=== PATIENT | female | born 1975 | race African-American/Black ===

== ENCOUNTER → 2016-06-12 | Outpatient (CLI) | payer OTHER ==
--- NOTE | 2016-06-12 10:37 | MM ---
Reason for exam: screening (asymptomatic). Baseline mammogram. Physical Findings: Nurse did not find any significant physical abnormalities on exam. MG Screening Mammo w CAD Bilateral CC and MLO view(s) were taken. The breast tissue is heterogeneously dense. This may lower the sensitivity of mammography. There is no discrete abnormality. These results were verbally communicated with the patient and result sheet given to the patient on 06/12/16. ASSESSMENT: Negative, BI-RAD 1 RECOMMENDATION: Routine screening mammogram of both breasts in 1 year.
== END | disposition home or self-care (01) ==
LOC: RADMAMWWP 09:44
PROVIDERS: ATTEND Internal Medicine
DX: Z12.31 Encounter for screening mammogram for malignant neoplasm of breast (principal)

== ENCOUNTER → 2019-07-29 | Outpatient (CLI) | payer OTHER ==
--- NOTE | 2019-07-29 14:49 | CT ---
EXAMINATION TYPE: CT brain wo con DATE OF EXAM: 07/29/2019 COMPARISON: None HISTORY: Headache with visual disturbance CT DLP: 1113.[address] of the brain was performed. The ventricles, basal cisterns and sulci overlying the cerebral convexities demonstrate a normal appe arance. There is symmetric decreased attenuation involving the bilateral cerebellar hemispheres of u ncertain etiology. I cannot exclude various infective and inflammatory processes. Consider further ev aluation with MRI. There is no evidence for intracranial hemorrhage or sulcal effacement. No mass effects are seen. Osseous calvarium is intact. If symptoms persist consider MRI as clinically warranted. IMPRESSION: 1. There is symmetric decreased attenuation involving the bilateral cerebellar hemispheres of uncert ain etiology. I cannot exclude various infective and inflammatory processes. Consider further evaluat ion with MRI.
== END | disposition home or self-care (01) ==
LOC: RADCTMAIN 14:10
PROVIDERS: ATTEND Internal Medicine
DX: R51 Headache (principal)
CPT/HCPCS: 70450

== ENCOUNTER → 2019-09-17 | Outpatient (CLI) | payer OTHER ==
[2019-09-17 13:33] LABS: Basophils # (A) 0.1 k/uL (0-0.2); Basophils % (A) 1 %; Eosinophils # (A) 0.1 k/uL (0-0.7); Eosinophils % (A) 3 %; HCT 35.5 % (34.0-46.0); HGB 10.9 gm/dL (11.4-16.0); Hypochromasia Slight; Lymphocytes # (A) 1.7 k/uL (1.0-4.8); Lymphocytes % (A) 36 %; MCH 26.3 pg (25.0-35.0); MCHC 30.7 g/dL (31.0-37.0); MCV 85.6 fL (80.0-100.0); Mean Platelet Volume 12.3; Monocytes # (A) 0.4 k/uL (0-1.0); Monocytes % (A) 8 %; Neutrophils # (A) 2.3 k/uL (1.3-7.7); Neutrophils % (A) 50 %; Platelet Count 184 k/uL (150-450); RBC 4.15 m/uL (3.80-5.40); RDW 15.6 % (11.5-15.5); WBC 4.7 k/uL (3.8-10.6)
[2019-09-17 14:11] LABS: Large Platelets Present
[2019-09-17 19:25] LABS: African American GFR (CKD) 121.3 (60.0-200.0); Albumin 4.2 g/dL (3.80-4.90); Albumin/Globulin Ratio 1.75 (1.60-3.17); Anion Gap 6.2 mmol/L (4.00-12.00); Calcium 9.6 mg/dL (8.7-10.3); Carbon Dioxide 27.8 mmol/L (21.6-31.8); Globulin 2.4 g/dL (1.6-3.3); Non-African American GFR(CKD) 104.6 (60.0-200.0); Potassium 4.1 mmol/L (3.5-5.5); Total Bilirubin 0.8 mg/dL (0.2-1.2); Total Protein 6.6 g/dL (6.2-8.2)
== END | disposition home or self-care (01) ==
LOC: LABWHC1 11:26
PROVIDERS: ATTEND Nurse Practitioner Acute Care
DX: R51 Headache (principal); R42 Dizziness and giddiness
CPT/HCPCS: 36415; 80053; 85025

== ENCOUNTER → 2022-01-01 | Outpatient (CLI) | payer OTHER ==
[2022-01-01 12:48] VITALS: BP 117/86; PULSE 76; TEMP 98; BMI 27.8
--- NOTE | 2022-01-01 12:51 | P.BASOAP ---
Subjective Progress Note Date: 01/01/22 Principal diagnosis: Morbid obesity 46-year-old female known to our service. Patient had lap band placed approximately 16 years ago. She still has 2 mL in her band as far as she can recall. Over the last 2 months she has had left lower quadrant abdominal pain. She is seeing multiple physicians to try to see if she can come up with an explanation for her pain. She had a CT abdomen and pelvis performed at [facility] and other than a left renal staghorn calculus no abnormalities were noted. Patient still has adequate restriction. No significant reflux or vomiting. No fevers. Objective - Vital Signs Vital signs: Vital Signs Temp 98 F 01/01/22 12:43 Pulse 76 01/01/22 12:43 Resp BP 117/86 01/01/22 12:43 Pulse Ox FiO2 Intake & Output 12/31/21 01/01/22 01/01/22 18:59 06:59 18:59 Weight 84.368 kg - Exam Abdomen: Soft, nondistended, mild left lower quadrant tenderness Assessment/Plan (1) Left lower quadrant abdominal pain Narrative/Plan: 46-year-old female with left lower quadrant abdominal pain. Options reviewed. Certainly the location of the pain would be inconsistent with band complications. We discussed options of observation, loosening LAP-BAND, or EGD. She will continue seeing her specialists and if no explanation for pain is noted other than the kidney stone she will consider scheduling EGD to evaluate for erosion. Plan: Date: 01/01/22 Initial Weight: Initial BMI: Current Weight: 84.368 kg Current BMI: 27.8 Type of Surgery: Total Volume in Band: Previous Volume: Volume Removed: Volume Added: Band Size:
== END | disposition home or self-care (01) ==
LOC: BARWHC3 11:51
PROVIDERS: ATTEND Surgery
DX: E66.01 Morbid (severe) obesity due to excess calories (principal)
CPT/HCPCS: 99211

== ENCOUNTER → 2022-07-16 | Outpatient (CLI) | payer OTHER ==
[2022-07-16 15:21] VITALS: BP 122/57; PULSE 103; RESP 16; TEMP 98.3; BMI 30.4
--- NOTE | 2022-07-16 15:50 | P.BASOAP ---
Subjective Progress Note Date: 07/16/22 Principal diagnosis: GERD, obesity 47-year-old female returns for recheck. She was last seen last December. Unfortunately she was diagnosed with colon cancer after colonoscopy was being performed for lower abdominal pain. Patient underwent robotic resection. One out of 40 lymph nodes positive. She has completed 3 months of adjuvant chemotherapy. Apparently they were discussing possibly another 3 months of chemotherapy. She is going to [facility] this for a second opinion. Patient says she has a loss of restriction from her band. She has gained some weight. Weight 203 from 186. She would like fluid added to the band. Objective - Vital Signs Vital signs: Vital Signs Temp 98.3 F 07/16/22 15:19 Pulse 103 H 07/16/22 15:19 Resp 16 07/16/22 15:19 BP 122/57 07/16/22 15:19 Pulse Ox FiO2 Intake & Output 07/15/22 07/16/22 07/16/22 18:59 06:59 18:59 Weight 92.079 kg - Exam Abdomen: Soft, nontender, nondistended, prior scars noted Assessment/Plan (1) Morbid obesity Narrative/Plan: 47-year-old female with morbid obesity and loss of restriction. We decided to access the band and see what the fluid status was. Under sterile condition attempts at losing band were made but on successful in entering into the hub the port. Options discussed. We'll proceed with fluoroscopy fill. Plan: Date: 07/16/22 Initial Weight: 111.13 kg Initial BMI: 36.7 Current Weight: 92.079 kg Current BMI: 30.4 Type of Surgery: Adjustable Gastric Banding Total Volume in Band: Previous Volume: Volume Removed: Volume Added: Band Size:
== END ==
LOC: BARWHC3 15:07
PROVIDERS: ATTEND Surgery
DX: E66.01 Morbid (severe) obesity due to excess calories (principal); K21.9 Gastro-esophageal reflux disease without esophagitis; Z68.30 Body mass index [BMI] 30.0-30.9, adult
CPT/HCPCS: 99212

== ENCOUNTER → 2022-08-13 | Outpatient (CLI) | payer OTHER ==
--- NOTE | 2022-08-13 13:47 | FL ---
EXAMINATION TYPE: FL esophagus cervic/pharynx DATE OF EXAM: 08/13/2022 HISTORY: 47-year-old female lap band evaluation, placed 15 years ago. 2 weeks of vomiting. COMPARISON: NONE TECHNIQUE: A single contrast esophagram is performed with thin barium. A total of 144 seconds of fl uoroscopic time was utilized during procedure and 33 images obtained. Total dose area product (DAP) in uGy*m?, mGy*cm? (or similar): 525.7. FINDINGS: Patient swallowed oral contrast without difficulty or delay. The lap band is approximately 30 degrees above the horizontal. No priors available to assess for interval change in positioning. There is a thin stream of contrast that flows across the lap band. The distal esophagus is mildly dil ated with fluid as a result, refer to image 27 of 33. No sizable hiatal hernia seen. A couple episodes of gastroesophageal reflux secondary to the narrowin g at the lap band. IMPRESSION: 1. Lap band is angled approximately 30 degrees above the horizontal. This argues against dandre lap-ba nd prolapse. No priors available to assess for interval change in position. 2. However, the lap band is tight with only a thin stream making its way across the lap band. The dis alphonse esophagus is mildly dilated with fluid as a result. Mild relative obstruction is suggested.
--- NOTE | 2022-08-13 14:26 | P.PN ---
Progress Note - Text Progress Note Date: 08/13/22 Patient presents today for a lap band adjustment under fluoroscopy. When she was seen in the office a few weeks ago patient was requesting a fill. She was started on oral chemotherapy for colon cancer. Over the last 2 weeks patient has had increased dysphagia and heartburn. Rather than add fluid to the band we ordered a esophagram when she arrived. The esophagram shows the band is too tight. Under fluoroscopic guidance I was unable to access the port and the band was emptied. There was actually 4 mL in the band. All 4 mL was removed. The port was partially upside down. I was able to come at the port from the right side laterally and took the port gently back flat and access it that way. The patient was discharged home. She will follow-up in the office. We'll discuss options of lap band port adjustment or replacement when we see her next visit. Patient will contact me with any residual dysphasia.
--- NOTE | 2022-08-13 16:42 | FL ---
Intraoperative/procedural fluoroscopic services were provided. Total fluoroscopy time is 52 seconds w ith a total of 4 submitted images to PACS. Please see the operative/procedural note for further detai ls. DAP: 397 mGym2
== END | disposition home or self-care (01) ==
LOC: RADUSWWP 12:18
PROVIDERS: ATTEND Surgery
DX: K22.89 Other specified disease of esophagus (principal); Z46.51 Encounter for fitting and adjustment of gastric lap band
CPT/HCPCS: 74210

== ENCOUNTER → 2022-10-29 | Outpatient (CLI) | payer OTHER ==
[2022-10-29 14:25] VITALS: BP 117/79; PULSE 102; TEMP 97.7; BMI 32.0
--- NOTE | 2022-10-29 14:54 | P.BASOAP ---
Subjective Progress Note Date: 10/29/22 Principal diagnosis: Morbid obesity Patient returns for recheck. Last seen her band was emptied a few months ago. She had done well since then. Lap band empty and required fluoroscopic adjustment. No dysphagia or heartburn. Patient has gained some weight. She would like more fluid added back. Objective - Vital Signs Vital signs: Vital Signs Temp 97.7 F 10/29/22 14:22 Pulse 102 H 10/29/22 14:22 Resp BP 117/79 10/29/22 14:22 Pulse Ox FiO2 Intake & Output 10/28/22 10/29/22 10/29/22 18:59 06:59 18:59 Weight 97.023 kg - Exam AAbdomen: Soft, nontender, nondistended Assessment/Plan (1) Morbid obesity Narrative/Plan: 47-year-old female doing well at this time. She would like fluid added to her band. Will attempt band access without fluoroscopy The patient's lap band port was palpated. The site was aseptically prepped. The Valdez needle was advanced into the port slightly laterally from the right and the port was able to be accessed. A total of 2 ml of fluid was added for a total of 2 mL. Pressure was held and a sterile dressing was applied. Plan: Date: 10/29/22 Initial Weight: 111.13 kg Initial BMI: 36.7 Current Weight: 97.023 kg Current BMI: 32.0 Type of Surgery: Total Volume in Band: Previous Volume: Volume Removed: Volume Added: Band Size:
== END ==
LOC: BARWHC3 14:02
PROVIDERS: ATTEND Surgery
DX: E66.01 Morbid (severe) obesity due to excess calories (principal); Z46.51 Encounter for fitting and adjustment of gastric lap band; Z68.32 Body mass index [BMI] 32.0-32.9, adult
CPT/HCPCS: 99212

== ENCOUNTER → 2023-04-01 | Outpatient (CLI) | payer OTHER ==
--- NOTE | 2023-04-01 14:09 | P.BASOAP ---
Subjective Progress Note Date: 04/01/23 Principal diagnosis: Morbid obesity 48-year-old female currently residing in [place]. She was last seen in the fall. We had to do a fluoroscopic fill to add 2 cc. Patient has actually gained weight approximately 8 pounds since that time. Patient is now interested in band removal. Says she is having some GERD symptoms. Some pain at times. She is concerned about erosion. She has no immediate plans for future bariatric surgery. She did have a previous robotic colectomy. Prior to that had a abdominoplasty. Objective - Exam Deferred Assessment/Plan (1) Morbid obesity Narrative/Plan: 48-year-old female with morbid obesity. Patient with band intolerance issues. Will proceed with laparoscopic Lap-Band removal, possible open. The risks of bleeding, infection, stenosis, stricture, leak, abscess, fistula formation, peritonitis, reflux, vomiting, conversion to an open procedure, aborting procedure, [place], PE, DVT, and were discussed. The patient understands and wishes to proceed. Plan: Date: Initial Weight: 111.13 kg Initial BMI: Current Weight: Current BMI: Type of Surgery: Total Volume in Band: Previous Volume: Volume Removed: Volume Added: Band Size:
== END ==
LOC: BARWHC3 14:42
PROVIDERS: ATTEND Surgery
DX: K21.9 Gastro-esophageal reflux disease without esophagitis (principal); E66.01 Morbid (severe) obesity due to excess calories; Z46.51 Encounter for fitting and adjustment of gastric lap band; Z98.84 Bariatric surgery status; Z98.890 Other specified postprocedural states
CPT/HCPCS: 99211

== ENCOUNTER → 2023-05-30 | Outpatient (CLI) | payer BC ==
[2023-05-30 17:09] LABS: Basophils # (A) 0.06 X 10*3/uL (0.00-0.10); Basophils % (A) 0.7 %; Eosinophils # (A) 0.27 X 10*3/uL (0.04-0.35); Eosinophils % (A) 3.2 %; HCT 37.2 % (37.2-46.3); HGB 10.8 g/dL (12.0-15.0); Lymphocytes # (A) 2.43 X 10*3/uL (0.90-5.00); Lymphocytes % (A) 28.8 %; MCH 22.5 pg (27.0-32.0); MCV 77.7 FL (80.0-97.0); Monocytes # (A) 0.98 X 10*3/uL (0.20-1.00); Monocytes % (A) 11.6 %; NRBC Per 100 WBC 0 X 10*3/uL (0.00-0.01); Neutrophils # (A) 4.66 X 10*3/uL (1.80-7.70); Neutrophils % (A) 55.3 %; Platelet Count 198 X 10*3/uL (140-440); RBC 4.79 X 10*6/uL (4.10-5.20); RDW 18.7 % (11.5-14.5); WBC 8.43 X 10*3/uL (4.50-10.00)
[2023-05-30 17:25] LABS: ALT 11 U/L (8-44); AST 16 U/L (13-35); Albumin 4.6 g/dL (3.8-4.9); Albumin/Globulin Ratio 1.44 Ratio (1.60-3.17); Alkaline Phosphatase 47 U/L (41-126); BUN/Creat Ratio 19.86 Ratio (12.00-20.00); Blood Urea Nitrogen 13.9 mg/dL (9.0-27.0); Calcium 9.7 mg/dL (8.7-10.3); Carbon Dioxide 24.3 mmol/L (21.6-31.8); Chloride 103 mmol/L (96-109); Globulin 3.2 g/dL (1.6-3.3); Glucose 85 mg/dL (70-110); Potassium 4.3 mmol/L (3.5-5.5); Sodium 138 mmol/L (135-145); Total Bilirubin 0.5 mg/dL (0.3-1.2); Total Protein 7.8 g/dL (6.2-8.2)
== END | disposition home or self-care (01) ==
LOC: LABPAT 10:23
PROVIDERS: ATTEND Surgery
DX: Z01.818 Encounter for other preprocedural examination (principal)
CPT/HCPCS: 36415; 80053; 85025; 93005

== ENCOUNTER 2023-06-02 12:32 | Day surgery (SDC) | payer BC ==
--- NOTE | 2023-06-02 07:39 | P.GSHP ---
History of Present Illness H&P Date: 06/02/23 Chief Complaint: Obesity, dysphagia 48-year-old female here today for laparoscopic Lap-Band removal. Patient had her Lap-Band placed many years ago. [place] out of town. She contacted us recently stating she is having increased dysphagia. Previously we had discus sed the options of Lap-Band removal because of intermittent vomiting and GERD symptoms. After receiving a phone call from her regarding her complaints and request for band removal she was scheduled for Lap-Band removal. Past Medical History Past Medical History: Cancer Additional Past Medical History / Comment(s): colon cancer Mar 2022 History of Any Multi-Drug Resistant Organisms: None Reported Past Surgical History: Bariatric Surgery, Bowel Resection, Cholecystectomy, Tonsillectomy, Tubal Ligation Additional Past Surgical History / Comment(s): lap band surgery 2014. bowel resection 04-01 Past Anesthesia/Blood Transfusion Reactions: No Reported Reaction Smoking Status: Never smoker - Past Family History Father Family Medical History: No Reported History Medications and Allergies Home Medications Medication Instructions Recorded Confirmed Type No Known Home Medications 01/01/22 10/29/22 History Allergies Allergy/AdvReac Type Severity Reaction Status Date / Time No Known Allergies Allergy Verified 05/28/23 10:47 Surgical - Exam Physical exam: General: Well-developed, well-nourished HEENT: Normocephalic, sclerae nonicteric Abdomen: Nontender, nondistended Extremities: No edema Neuro: Alert and oriented Assessment and Plan (1) Morbid obesity Narrative/Plan: 48-year-old female with dysphagia and intermittent vomiting. Will proceed with laparoscopic Lap-Band removal at this time. Risks of bleeding, infection, conversion to open procedure, findings of erosion or prolapse, persistent dysphagia, reflux, leak, abscess reviewed. She understands and wishes to pr oceed. Status: Acute Code(s): E66.01 - MORBID (SEVERE) OBESITY DUE TO EXCESS CALORIES SNOMED Code(s): 035766985
[~2023-06-02 12:32] MED LIST: MIDAZOLAM 2 MG/2 ML VIAL IV PRN
[2023-06-02] MEDS: LACTATED RINGERS 1,000 ML IV SCH (12:57)
[2023-06-02] MEDS: DEXAMETHASONE SOD PHOSPHATE 4 MG/ML 1 ML VIAL IV ONE (13:10)
[2023-06-02] MEDS: SCOPOLAMINE 1 MG/72 HR PATCH TRANSDERM ONE (13:10)
[2023-06-02] MEDS: ONDANSETRON 4 MG/2 ML VIAL IVP ONE (13:10)
[2023-06-02 13:22] VITALS: RESP 16
[2023-06-02] MEDS ORDERED: GLYCOPYRROLATE 0.2 MG/ML 2 ML VIAL ONE (13:55)
[2023-06-02] MEDS ORDERED: LIDOCAINE 1% INJ 10MG/ML (20 ML MDV) ONE (13:55)
[2023-06-02] MEDS ORDERED: fentaNYL (PF) 50 MCG/ML 2 ML AMP ONE (13:55)
[2023-06-02] MEDS ORDERED: ROCURONIUM 10 MG/ML (5 ML VIAL) IV ONE (13:55)
[2023-06-02] MEDS ORDERED: SUCCINYLCHOLINE CHLORIDE 200 MG/10 ML VIAL IV ONE (13:55)
[2023-06-02] MEDS ORDERED: HYDROmorphone (PF) 1 MG/ML ONE (13:55)
[2023-06-02] MEDS ORDERED: NEOSTIGMINE 1 MG/ML 10 ML VIAL ONE (13:55)
[2023-06-02] MEDS ORDERED: PROPOFOL 10 MG/ML 20 ML VIAL IV ONE (13:55)
[2023-06-02] MEDS: BUPIVACAINE (PF) 0.25% 30 ML VIAL SQ ONE (14:41)
[2023-06-02] MEDS ORDERED: NALOXONE 0.4 MG/ML 1 ML VIAL IV PRN (15:24)
--- NOTE | 2023-06-02 15:40 | P.OP ---
Date of Procedure: 06/02/23 Procedure(s) Performed: PREOPERATIVE DIAGNOSIS: Band intolerance/dysphagia POSTOPERATIVE DIAGNOSIS: Same PROCEDURE: Laparoscopic lap band removal SURGEON: Idalia EBL: Minimal ANESTHESIA: General COMPLICATIONS: None OPERATIVE PROCEDURE: The patient was brought and placed on the operating room table in the supine position. The patient was placed under general anesthesia at that time. The patient was then placed in lithotomy. The abdomen was prepped and draped in the usual sterile fashion. The previous port incision was localized and then incised using a scalpel. The port was easily excised using electrocautery. Entrance into the perineal cavity occurred using a 5 mm optical trocar through the old trocar entrance site. Insufflation took place to 15 mmHg. A right subxiphoid 5 mm trocar was placed. This was then removed and the medium Bishop hook was used to elevate the left lobe of the liver anteriorly. An additional 5 mm trocar was placed under direct visualization in the left lateral upper quadrant. The original 5 mm trocar was switched to a 15 mm trocar. A additional 5 mm trocar was placed in the right upper quadrant under direct dilatation. There were adhesions to the band in the buccal that were lysed using both the LigaSure and electrocautery. The band was then cut using the laparoscopic narinder. The band was then removed easily in 2 portions through the 15 mm trocar site. The stomach itself was inspected and revealed no evidence of erosion or prolapse. The trochars were removed. The fascia at the 15 mm site was closed using a Beau-Rizwan [id number] 0 Vicryl stitch. The subcutaneous tissues at the port site was closed using a 3-0 Vicryl suture. The skin at all 4 incision sites were closed using 4-0 Monocryl sutures. Skin glue was then applied. DISPOSITION: Stable to recovery room
[2023-06-02 15:45] VITALS: TEMP 97
[2023-06-02] MEDS: KETOROLAC 15 MG/ML 1 ML VIAL IVP ONE (15:45)
[2023-06-02] MEDS: HYDROmorphone 0.5 MG/0.5 ML SYRINGE IVP PRN (15:45)
[2023-06-02] MEDS: HYDROmorphone 0.5 MG/0.5 ML SYRINGE IVP ONE (16:09)
[2023-06-02] MEDS: traMADol 50 MG TAB PO STA (16:54)
[2023-06-02 17:58] VITALS: BP 116/76; PULSE 92
== END 2023-06-02 17:53 | disposition home or self-care (01) ==
LOC: OR 12:32
PROVIDERS: ATTEND Surgery
DX: E66.01 Morbid (severe) obesity due to excess calories (principal); K21.9 Gastro-esophageal reflux disease without esophagitis; Z90.49 Acquired absence of other specified parts of digestive tract; Z98.51 Tubal ligation status; Z85.038 Personal history of other malignant neoplasm of large intestine; Z68.34 Body mass index [BMI] 34.0-34.9, adult
CPT/HCPCS: 43772; 81025; J0330; J1100; J2710; J0690; J2405; J2001; J3010; J1170 ×2; J1885; J2704; J0665